=== PATIENT | female | born 1975 | race African-American/Black ===

== ENCOUNTER 2017-05-29 13:12 | Emergency (ER) | payer OTHER ==
[~2017-05-29] VITALS: Ht 160 cm; Wt 80.3 kg
--- NOTE | ~2017-05-29 | EKG ---
[place] [address] [facility] [employer] [place] [address] ELECTROCARDIOGRAM REPORT Name: EAMON DELVALLE Room #: [id number] Admission: 05/29/17 Attend Phys: Discharge: 05/29/17 Date of : 71 Report #: [id number] THIS REPORT FOR: //name// [facility] ED Test Date: 2017-05-29 Test Time: 13:39:31 Pat Name: EAMON DELVALLE Department: Room: Gender: F School Aide: [birth year] Requested By: Libia Green Order Number: [id number] MD: Deep Raza Measurements Intervals [place] Rate: 80 P: 50 DC: 151 QRS: 50 QRSD: 80 T: 17 QT: 396 QTc: 457 Interpretive Statements Sinus rhythm Borderline T wave abnormalities No previous ECG available for comparison Electronically Signed On 05-31-2017 13:29:16 CDT by Deep Raza [email or web address] <ELECTRONICALLY SIGNED> By: Deep Raza MD, [facility] 05/31/17 1329 1339 1339 Deep Raza MD, FACC /EPI
[2017-05-29] MEDS ORDERED: ASPIR 8181 MG PO (13:41)
[2017-05-29] MEDS ORDERED: FEOSOL325 M1 PO (13:42)
[2017-05-29 13:57] LABS: ABSOLUTE NEUTROPHILS 3.9 thou/uL (1.4-8.2); BASOPHILS 0.5 % (0.0-2.0); EOSINOPHILS 5.7 % (0.0-3.0); HEMATOCRIT 33.6 % (37.0-47.0); HEMOGLOBIN 10.8 gm/dL (12.0-15.0); LYMPHOCYTES 26.8 % (24.0-44.0); MCH 22.9 pg (26.0-34.0); MCV 71.6 fL (80.0-100.0); MONOCYTES 10.3 % (1.0-8.0); PLATELET COUNT 332 thou/uL (150-400); POLYS 56.7 % (36.0-66.0); RBC 4.69 mil/uL (4.20-5.00); RDW 16.6 % (10.5-14.5); WBC 6.9 thou/uL (4.0-11.0)
[2017-05-29 13:58] LABS: MANUAL DIFF NO
[2017-05-29 14:07] LABS: ANION GAP 9 mmol/L (7-16); BUN 8 mg/dL (7-18); CALCIUM 8.6 mg/dL (8.5-10.1); CHLORIDE 107 mmol/L (98-107); CO2 25 mmol/L (21-32); CREATININE 0.8 mg/dL (0.6-1.0); GLUCOSE 96 mg/dL (74-106); POTASSIUM 3.8 mmol/L (3.5-5.1); SODIUM 141 mmol/L (136-145)
[2017-05-29 14:14] LABS: URINE BILIRUBIN NEGATIVE (Negative); URINE BLOOD NEGATIVE (Negative); URINE COLOR YELLOW; URINE GLUCOSE-RANDOM* NEGATIVE (Negative); URINE KETONES NEGATIVE (Negative); URINE NITRITE NEGATIVE (Negative); URINE PROTEIN (DIPSTICK) NEGATIVE (Negative); URINE UROBILINOGEN 0.2 E.U./dl (0.2-1.0)
[2017-05-29 14:15] LABS: ALBUMIN 3.4 g/dL (3.4-5.0); ALKALINE PHOSPHATASE 65 U/L (46-116); DIRECT BILIRUBIN < 0.1 mg/dL (<0.1-0.3); SGOT 12 U/L (15-37); SGPT 14 U/L (30-65); TOTAL BILIRUBIN 0.1 mg/dL (<0.1-1.0); TROPONIN-I < 0.04 ng/mL (<0.04-0.07)
[2017-05-29] MEDS ORDERED: CITRATE OF MAG296 ML PO (14:33)
[2017-05-29] MEDS ORDERED: ZANTAC 150MG T150 MG PO (14:33)
[2017-05-29 14:35] LABS: ANISOCYTOSIS 1+; HYPOCHROMASIA 1+; MICROCYTES 3+; PLATELET ESTIMATE NORMAL
[2017-05-29 14:39] VITALS: BP 152/84
== END 2017-05-29 14:50 | disposition home or self-care (01) ==
LOC: ER 13:12
PROVIDERS: Emergency Medicine
DX: K59.00 Constipation, unspecified (principal); I25.2 Old myocardial infarction; F17.210 Nicotine dependence, cigarettes, uncomplicated; F10.99 Alcohol use, unspecified with unspecified alcohol-induced disorder; Z88.1 Allergy status to other antibiotic agents; Z88.0 Allergy status to penicillin; Z88.5 Allergy status to narcotic agent

== ENCOUNTER 2017-09-11 18:56 | Emergency (ER) | payer OTHER ==
[~2017-09-11] VITALS: Ht 160 cm; Wt 83.9 kg
[~2017-09-11 18:56] MED LIST: ASPIR 8181 MG PO; CITRATE OF MAG296 ML PO; FEOSOL325 M1 PO; ZANTAC 150MG T150 MG PO
[2017-09-11 18:57] VITALS: BP 189/96
[2017-09-11] MEDS ORDERED: ZOFRAN ODT8 MG PO (19:58)
== END 2017-09-11 20:05 | disposition home or self-care (01) ==
LOC: ER 18:56
DX: J06.9 Acute upper respiratory infection, unspecified (principal); B34.9 Viral infection, unspecified; Z88.5 Allergy status to narcotic agent; Z88.0 Allergy status to penicillin; Z88.2 Allergy status to sulfonamides; Z88.6 Allergy status to analgesic agent; Z87.891 Personal history of nicotine dependence

== ENCOUNTER 2017-11-15 10:24 | Emergency (ER) | payer OTHER ==
[~2017-11-15] VITALS: Ht 162.6 cm; Wt 83.9 kg
[~2017-11-15 10:24] MED LIST changes: +ZOFRAN ODT8 MG PO
[2017-11-15] MEDS ORDERED: DOXYCYCLINE 10100 MG PO ×2 (11:26→11:27)
[2017-11-15] MEDS ORDERED: IBUPROFEN 800800 M1 PO ×2 (11:26→11:27)
[2017-11-15 12:08] VITALS: BP 133/76
== END 2017-11-15 12:10 | disposition home or self-care (01) ==
LOC: ER 10:24
DX: L02.411 Cutaneous abscess of right axilla (principal); I25.2 Old myocardial infarction; Z87.891 Personal history of nicotine dependence; Z88.2 Allergy status to sulfonamides; Z88.5 Allergy status to narcotic agent